=== PATIENT | female | born 1930 | race African-American/Black ===

== ENCOUNTER 2016-09-20 17:47 | Emergency (ER) | payer MEDICARE, BC ==
[~2016-09-20 17:47] MED LIST: ALLEGRA PO; ASAB PO; CALTRA600D PO; COQ-10200 MG OR; FISH-EPA1000 MG PO; GLUCCHONDR PO; HYDROCHLOROT25 MG PO; LIPITOR40 PO; MULTIPLE VIT PO; NORCO1 TA1 PO; PRAVACHOL40 MG PO; TRAVATAN OPH; VITAMIN D1000 UNI1 PO; X5 PO; ZESTRIL10 MG PO
== END 2016-09-20 18:46 | disposition home or self-care (01) ==
LOC: ER 17:47
DX: H11.32 Conjunctival hemorrhage, left eye (principal); Z88.2 Allergy status to sulfonamides; Z88.5 Allergy status to narcotic agent; Z79.82 Long term (current) use of aspirin; Z79.899 Other long term (current) drug therapy
CPT/HCPCS: 99283